=== PATIENT | male | born 1940 | race Caucasian/White ===

== ENCOUNTER 2020-12-19 17:46 | Emergency (ER) | payer MEDICARE, MEDICAID ==
[~2020-12-19] VITALS: Ht 177.8 cm; Wt 95.4 kg
[2020-12-19 18:00] VITALS: BP 202/91
--- NOTE | 2020-12-19 18:19 | PHYS DOC ---
General Adult EDM: Chief Complaint: CATHETER CHANGE HPI: HPI: Patient is a 80 year old male presents via EMS from his correction facility in [place], for replacement of a suprapubic urinary catheter. He has had this catheter for approximately 1 year. This was placed at [facility] by his urologist. I spoke with the patient's nurse there, and the catheter is usually changed monthly, the last time it was changed was on November 15. Tonight, she went to change it and noticed some resistance and she was unable to pass the Perez enough to inflate the bulb. She noted some urine leaking around the suprapubic catheter site, so she had EMS bring the patient to the ER. He preferred to come here, as it was closer. Patient denies any abdominal pain, nausea vomiting, fevers or chills. He denies any discomfort. He reports that he has been eating and drinking normally. He is relatively confused, and upon discussing this with the patient's nurse, this is his baseline mental status. Review of Systems: Review of Systems: Constitutional: Denies fever or chills. [] Respiratory: Denies cough or shortness of breath. [] Cardiovascular: Denies chest pain or edema. [] GI: Denies abdominal pain, nausea, vomiting, bloody stools or diarrhea. [] : Chronic urinary incontinence with chronic suprapubic catheter. Musculoskeletal: Denies back pain or joint pain. [] Neurologic: Denies headache, focal weakness or sensory changes. [] Psychiatric: Denies depression or anxiety. [] Heart Score: C/O Chest Pain: No Risk Factors: Risk Factors: DM, Current or recent (<one month) smoker, HTN, HLP, family history of CAD, obesity. Risk Scores: Score 0 - 3: 2.5% MACE over next 6 weeks - Discharge Home Score 4 - 6: 20.3% MACE over next 6 weeks - Admit for Clinical Observation Score 7 - 10: 72.7% MACE over next 6 weeks - Early Invasive Strategies Allergies: Allergies: Allergies Coded Allergies Type Severity Reaction Last Updated Verified No Known Drug Allergies 12/19/20 No Physical Exam: PE: Constitutional: Well developed, well nourished, no acute distress, non-toxic appearance. He is resting comfortably on the ED gurney. HENT: Normocephalic, atraumatic, Dukas membranes moist. Eyes: Sclera nonicteric. Neck: Normal range of motion, no tenderness, supple, no stridor. [] Cardiovascular:Heart rate regular rhythm Lungs & Thorax: Bilateral breath sounds clear to auscultation [] Abdomen: Abdomen is obese, soft, nondistended, nontender to palpation, normal bowel sounds. Suprapubic catheter stoma site is clean dry and intact, with minimal skin maceration/irritation. No warmth or erythema. No purulent drainage. No active bleeding. No tenderness. Skin: Warm, dry, no warmth or erythema or purulent drainage around her pubic catheter stoma site Back: No tenderness Extremities: No tenderness, no cyanosis, no clubbing, ROM intact, no edema. [] Neurologic: Awake, alert, conversant, oriented to person place and situation. Moves all 4 extremities equally. No facial asymmetry. Speech is fluent. He is mildly and pleasantly confused. Psychologic: Affect normal, judgement normal, mood normal. [] EKG: EKG: [] Radiology/Procedures: Radiology/Procedures: [] Course & Med Decision Making: Course & Med Decision Making I was able to ultimately successfully replace his suprapubic catheter. He required a 12 Algerian Perez catheter for placement. He was given local injectable anesthesia around the stoma site using 1% lidocaine. I also used lidocaine jelly for analgesia/anesthesia. I did gently probe the stoma track with curved Kellys. I initially attempted to place a 16 Algerian Perez catheter which was too large. He tolerated the procedure very well. I recommend he will require smaller Perez catheters in the future. He has no pain, I do not see an y evidence of obvious cutaneous infection or stoma infection. There is minimal irritation, the tissue is friable, but I do not see any purulent drainage or cellulitis. He will be discharged back to his care facility. I recommend that he follow-up with his urologist at , as well as his primary care physician. Return precautions are given. Ericon Disclaimer: Sandy Disclaimer: This electronic medical record was generated, in whole or in part, using a voice recognition dictation system. Departure Departure Impression: Primary Impression: Suprapubic catheter dysfunction Qualified Codes: T83.010S - Breakdown (mechanical) of cystostomy catheter, sequela Additional Impression: Urinary catheter (Perez) change required Disposition: 03 [facility] HOME FACILITY Condition: STABLE Patient Instructions: Suprapubic Catheter Replacement Additional Instructions: Your suprapubic catheter was replaced with a 12 Algerian Perez. I recommend smaller caliber catheter such as this 1 for future replacement endeavors. Keep the skin around the stoma site clean and dry. Currently there is no evidence of skin infection or cellulitis. Return immediately to the ER for fever of 100.4 or higher, vomiting, severe abdominal pain, if you start draining yellow or green fluid around your Perez catheter site, or any other concerns. Please follow-up with your primary care physician as well as your urologist at [facility]. CHAVEZ LY DO Dec 19, 2020 18:19
[2020-12-19] MEDS ORDERED: LIDOCAINE 2% TOPICAL JELLY 5GM TUBE. TP ONE (20:10)
[2020-12-19] MEDS ORDERED: LIDOCAINE 1%/EPI 1:100,000 20 ML VIAL. ONE (20:30)
== END 2020-12-19 22:18 ==
LOC: ER 17:46
DX: T83.090A Other mechanical complication of cystostomy catheter, initial encounter (principal); N39.498 Other specified urinary incontinence; R41.0 Disorientation, unspecified
CPT/HCPCS: 51702; 99285

== ENCOUNTER 2021-07-03 16:27 | Emergency (ER) | payer MEDICARE, MEDICAID ==
[~2021-07-03] VITALS: Ht 175.3 cm; Wt 100.0 kg
--- NOTE | 2021-07-03 17:07 | PHYS DOC ---
Past Medical History Additional Past Medical Histor: BPH Past Surgical History: Other Additional Past Surgical Histo: SUPRAPUBIC CATHETER PLACEMENT Smoking Status: Former Smoker Alcohol Use: None General Adult EDM: Chief Complaint: suprapubic catheter came out HPI: HPI: Patient is a 80 year old male who was brought here by EMS from [facility] because his suprapubic catheter came out this morning. [facility] staff attempted to replace the suprapubic catheter but was not able to pass it through. They decided to send him here because there was some bleeding at the site of the catheter entering area. Patient denies any abdominal pain, no nausea or vomiting. Patient denies any fever. Review of Systems: Review of Systems: Constitutional: Denies fever or chills. [] Eyes: Denies change in visual acuity. [] HENT: Denies nasal congestion or sore throat. [] Respiratory: Denies cough or shortness of breath. [] Cardiovascular: Denies chest pain or edema. [] GI: Denies abdominal pain, nausea, vomiting, bloody stools or diarrhea. [] : Denies dysuria. [] Musculoskeletal: Denies back pain or joint pain. [] Integument: Denies rash. [] Neurologic: Denies headache, focal weakness or sensory changes. [] Endocrine: Denies polyuria or polydipsia. [] Lymphatic: Denies swollen glands. [] Psychiatric: Denies depression or anxiety. [] Heart Score: C/O Chest Pain: N/A Risk Factors: Risk Factors: DM, Current or recent (<one month) smoker, HTN, HLP, family history of CAD, obesity. Risk Scores: Score 0 - 3: 2.5% MACE over next 6 weeks - Discharge Home Score 4 - 6: 20.3% MACE over next 6 weeks - Admit for Clinical Observation Score 7 - 10: 72.7% MACE over next 6 weeks - Early Invasive Strategies Allergies: Allergies: Allergies Coded Allergies Type Severity Reaction Last Updated Verified No Known Drug Allergies 12/19/20 No Physical Exam: PE: Constitutional: Well developed, well nourished, no acute distress, non-toxic appearance. [] HENT: Normocephalic, atraumatic, bilateral external ears normal, oropharynx moist, no oral exudates, nose normal. [] Eyes: PERRLA, EOMI, conjunctiva normal, no discharge. [] Neck: Normal range of motion, no tenderness, supple, no stridor. [] Cardiovascular:Heart rate regular rhythm, no murmur [] Lungs & Thorax: Bilateral breath sounds clear to auscultation [] Abdomen: Bowel sounds normal, soft, no tenderness, no masses, no pulsatile masses. [] Skin: Warm, dry, no erythema, no rash. [] Back: No tenderness, no CVA tenderness. [] Extremities: No tenderness, no cyanosis, no clubbing, ROM intact, no edema. [] Neurologic: Alert and oriented X 3, normal motor function, normal sensory function, no focal deficits noted. [] Psychologic: Affect normal, judgement normal, mood normal. [] EKG: EKG: [] Radiology/Procedures: Radiology/Procedures: A 18 Faroese suprapubic Perez catheter was replaced by the physician in the ER, patient tolerated procedure well, there was about 600 cc of urine return immediately. No blood clot noted. There was some bleeding around the stoma area, it was stopped after it was applied pressure with gauze. The suprapubic catheter was secured with tape onto the abdominal wall. Patient will be discharged back to the [facility]. Course & Med Decision Making: Course & Med Decision Making Pertinent Labs and Imaging studies reviewed. (See chart for details) [] Dragon Disclaimer: Sandy Disclaimer: This electronic medical record was generated, in whole or in part, using a voice recognition dictation system. Departure Departure Impression: Primary Impression: Suprapubic catheter Additional Impression: Urinary catheter change required Disposition: 03 [facility] FACILITY Condition: STABLE Referrals: ADRIANNE JUDGE MD (PCP) Follow up with your doctor as needed Patient Instructions: Suprapubic Catheter Replacement, Care After CHINMAY ROSS DO Jul 03, 2021 17:07
[2021-07-03 18:10] VITALS: BP 194/88
== END 2021-07-03 18:10 ==
LOC: ER 16:27
DX: T83.028A Displacement of other urinary catheter, initial encounter (principal); Z87.891 Personal history of nicotine dependence; Y84.6 Urinary catheterization as the cause of abnormal reaction of the patient, or of later complication, without mention of misadventure at the time of the procedure; Y92.89 Other specified places as the place of occurrence of the external cause
CPT/HCPCS: 51702; 99284; 99285-25